=== PATIENT | male | born 1985 | race Caucasian/White ===

== ENCOUNTER 2017-12-09 19:18 | Emergency (ER) | payer SELFPAY, MEDICAID ==
[2017-12-09] MEDS: ACETAMINOPHEN 500 MG TAB PO (21:34)
[2017-12-09] MEDS: CEPHALEXIN 500 MG CAP PO (23:20)
== END 2017-12-09 23:38 | disposition home or self-care (01) ==
LOC: FTE 19:18
DX: S01.01XA Laceration without foreign body of scalp, initial encounter (principal); R40.2412 Glasgow coma scale score 13-15, at arrival to emergency department; W22.8XXA Striking against or struck by other objects, initial encounter; Y92.9 Unspecified place or not applicable
CPT/HCPCS: 12002; 70450; 99284-25

== ENCOUNTER 2018-02-16 18:38 | Emergency (ER) | payer MEDICAID | END 2018-02-16 21:36 | disposition home or self-care (01) | LOC: FTE 18:38 | DX: B85.2 Pediculosis, unspecified (principal) | CPT/HCPCS: 99283; Z7502 ==